=== PATIENT | male | born 1970 | race Caucasian/White ===

== ENCOUNTER 2024-05-18 19:09 | Emergency (ER) | payer SELFPAY ==
[2024-05-18] MEDS ORDERED: Lidocaine/Transparent Dressing 1 EACH KIT ONE (20:01)
[2024-05-18] MEDS ORDERED: Lidocaine 1% w/Epinephrine 1:100K 20 ML VIAL ONE (20:01)
[2024-05-18] MEDS ORDERED: Bacitracin 1 PK ONE (20:27)
[2024-05-18] MEDS ORDERED: Boostrix 0.5 ML (Tdap) VIAL (>/=7 yrs of age) ONE (20:29)
== END 2024-05-18 20:40 | disposition home or self-care (01) ==
LOC: NAV ERS 19:09
DX: S01.01XA Laceration without foreign body of scalp, initial encounter (principal); E03.9 Hypothyroidism, unspecified; Z23 Encounter for immunization; Z79.899 Other long term (current) drug therapy; W01.10XA Fall on same level from slipping, tripping and stumbling with subsequent striking against unspecified object, initial encounter
CPT/HCPCS: 12002; 90471; 90715